=== PATIENT | female | born 1980 | race Caucasian/White ===

== ENCOUNTER 2018-08-06 09:29 | Day surgery (SDC) | payer SELFPAY ==
[2018-08-04 12:52] VITALS: BMI 28.0
[2018-08-06] MEDS ORDERED: LIDOCAINE HCL 1%, 10 MG/ML (20ML VIAL) ONE (11:10)
[2018-08-06] MEDS ORDERED: SUCCINYLCHOLINE CHLORIDE 200 MG/10 ML VIAL ONE (12:12)
[2018-08-06] MEDS ORDERED: ROCURONIUM BROMIDE 50 MG/5 ML VIAL ONE ×2 (12:12→13:38)
[2018-08-06] MEDS ORDERED: MIDAZOLAM HCL 2 MG/2 ML SINGLE DOSE VIAL ONE (12:12)
[2018-08-06] MEDS ORDERED: fentaNYL CITRATE 250 MCG/5 ML VIAL ONE (12:12)
[2018-08-06] MEDS ORDERED: PROPOFOL 20 ML ONE (12:12)
[2018-08-06] MEDS ORDERED: SCOPOLAMINE HYDROBROMIDE 1 PATCH PATCH.TD72 ONE (12:15)
[2018-08-06] MEDS ORDERED: LIDOCAINE 1%/EPI 1:100000 (20 ML MULTI DOSE VIAL) ONE (14:21)
[2018-08-06] MEDS ORDERED: LIDOCAINE HCL 2% 100 MG/5 ML DISP.SYRIN ONE (15:07)
[2018-08-06] MEDS ORDERED: KETOROLAC TROMETHAMINE 30 MG/1 ML VIAL ONE (15:33)
[2018-08-06] MEDS ORDERED: ONDANSETRON 4 MG/2 ML VIAL IVPUSH PRN (15:49)
[2018-08-06] MEDS ORDERED: PROMETHAZINE HCL 25 MG/1 ML VIAL IVPUSH PRN (15:49)
[2018-08-06] MEDS ORDERED: oxyCODONE HCL 5 MG TABLET ONE (17:32)
[2018-08-06] MEDS ORDERED: oxyCODONE HCL 5 MG TABLET PO PRN (17:59)
[2018-08-06] MEDS ORDERED: PROMETHAZINE HCL 25 MG/1 ML VIAL IVPB PRN (18:04)
[2018-08-06 19:38] VITALS: BP 105/72; PULSE 82; TEMP 98
== END 2018-08-06 19:30 | disposition home or self-care (01) ==
LOC: FASU 09:29
PROVIDERS: ATTEND Plastic Surgery
PROC: 0J0L3ZZ Alteration of Right Upper Leg Subcutaneous Tissue and Fascia, Percutaneous Approach (ICD-10-PCS; 2018-08-06)
PROC: 0J080ZZ Alteration of Abdomen Subcutaneous Tissue and Fascia, Open Approach (ICD-10-PCS; principal; 2018-08-06 12:54)
PROC: 0J0M3ZZ Alteration of Left Upper Leg Subcutaneous Tissue and Fascia, Percutaneous Approach (ICD-10-PCS; 2018-08-06 12:54)
DX: Z41.1 Encounter for cosmetic surgery (principal); M62.08 Separation of muscle (nontraumatic), other site
CPT/HCPCS: 84703; 94760